=== PATIENT | female | born 1925 | race Caucasian/White ===

== ENCOUNTER 2017-06-13 06:21 | Inpatient (IN) | payer MEDICARE ==
[~2017-06-13] VITALS: Ht 157.5 cm; Wt 71.7 kg
[2017-06-13] MEDS ORDERED: FUROSEMIDE 40 MG/4 ML VIAL IV ONE (06:30)
[2017-06-13] MEDS ORDERED: ASPIRIN 325 MG TABLET PO ONE (06:30)
[2017-06-13] MEDS ORDERED: NTG 50 MG/D5W250 ML BOTTL 250 ML IV ONE ×2 (06:30→06:31)
--- NOTE | 2017-06-13 06:33 | NUR ---
PT BIBA FOR INCREASING SOB X4 DAYS. PRESENTS WITH SHALLOW BREATHING. PT PLACED IN BED, PLACED ON O2 VIA NC AT 3 LPM, O2 SAT AT 98%. IV STATED AT RIGHT WRIST 20G. PLACED ON MONITOR.
[2017-06-13] MEDS ORDERED: FUROSEMIDE 40 MG/4 ML VIAL ONE (06:47)
[2017-06-13] MEDS ORDERED: ASPIRIN 325 MG TABLET ONE (06:47)
--- NOTE | 2017-06-13 06:47 | NUR ---
ON-CALL CARDIOLOGY PAGED; TRANSFERED TO DR. ADAMS
--- NOTE | 2017-06-13 06:57 | NUR ---
CALLED CODE STEMI
--- NOTE | 2017-06-13 06:59 | NUR ---
CALLED [facility]; SPOKE WITH PRINCIPAL AUTOMATION ENGINEER ELIN. STATED SHE WOULD CONTACT THE CCT NURSE AND TRANSFER THE CALL, BUT CALL WENT TO VOICEMAIL AND WAS UNABLE TO LEAVE MESSAGE.
--- NOTE | 2017-06-13 07:01 | NUR ---
CALLED [facility], SPOKE WITH HANNA CRUZ FAX [phone] FACE SHEET AND EKG
[2017-06-13 07:10] LABS: CALCIUM, SERUM 9.5 mg/dL (8.5-10.1); CARBON DIOXIDE 21 mmol/L (21-32); CHLORIDE 96 mmol/L (98-107); CREATININE 0.7 mg/dL (0.6-1.3); GLUCOSE 156 mg/dL (74-106); POTASSIUM 3.9 mmol/L (3.5-5.1); SODIUM SERUM 127 mmol/L (136-145); UREA NITROGEN, BLOOD 17 mg/dL (7-18)
[2017-06-13 07:21] LABS: TROPONIN I 2.156 ng/mL (0.00-0.056)
[2017-06-13 07:23] LABS: ALANINE AMINOTRANSFERASE 67 U/L (12-78); ALBUMIN 2.5 g/dL (3.4-5.0); ALKALINE PHOSPHATASE 147 U/L (46-116); ASPARTATE AMINOTRANSFERASE 30 U/L (15-37); B-TYPE NATRIURETIC PEPTIDE 10807 PG/ML (0-125); BILIRUBIN,DIRECT 0.1 mg/dL (0.0-0.2); BILIRUBIN,TOTAL 0.8 mg/dL (0.2-1.0); TOTAL PROTEIN, SERUM 6.8 g/dL (6.4-8.2)
[2017-06-13 07:24] LABS: INR 1.1 (0.87-1.13); PROTHROMBIN TIME 11.4 SECS (9.5-12.7)
--- NOTE | 2017-06-13 07:26 | NUR ---
CALLED [facility] [phone] [facility] TO RE-PAGE CARDIO
[2017-06-13 07:33] LABS: BASOPHILS % (AUTO) 0.3 % (0.0-2.0); EOSINOPHILS % (AUTO) 0.5 % (0.0-6.0); HEMATOCRIT 37 % (33-45); HEMOGLOBIN 12.4 g/dL (11.5-14.8); LYMPHOCYTES # (AUTO) 0.9 /CMM (0.8-4.8); LYMPHOCYTES % (AUTO) 9.3 % (20.0-44.0); MEAN CORPUSCULAR HEMOGLOBIN 30 PG (26.0-33.0); MEAN CORPUSCULAR HGB CONC 33 g/dl (31.0-36.0); MEAN CORPUSCULAR VOLUME 91 fL (82-100); MONOCYTES % (AUTO) 10.3 % (2.0-12.0); NEUTROPHILS # (AUTO) 7.5 /CMM (1.8-8.9); NEUTROPHILS % (AUTO) 79.6 % (43.0-81.0); PLATELET COUNT (AUTO) 381 /CMM (150-450); RDW COEFFICIENT OF VARIATION 12.3 (11.5-15.0); RED BLOOD CELL COUNT(AUTO) 4.08 MIL/uL (4.0-5.2); WHITE BLOOD COUNT (AUTO) 9.4 K/uL (4.3-11.0)
[2017-06-13] MEDS ORDERED: ENOXAPARIN SODIUM 80 MG/0.8 ML DISP.SYRIN SQ ONE (07:40)
--- NOTE | 2017-06-13 07:41 | NUR ---
PAGED [facility]--- ACTING MANAGER IS DR WOODS.
[2017-06-13] MEDS ORDERED: ENOXAPARIN SODIUM 60 MG/0.6 ML DISP.SYRIN SQ ONE (08:00)
--- NOTE | 2017-06-13 08:26 | NUR ---
GAVE REPORT TO EBENEZER FARIA [address] WOODS ADMITTING TRANSFER VIA ACLS PROTOCOL
--- NOTE | 2017-06-13 08:48 | NUR ---
BIENVENIDO RN OPENING RECEIVED PATIENT A/OX4 DENIES SOB AT THIS TIME, NO PAIN, RESPIRATIONS EQUAL AND UNLABORED. PATIENT 2LPM NC SATTING 97%. PATIENT TELE NSR 94 AT THIS TIME. PATIENT SKIN INTACT. DAUGHTER AND SON IN LAW AT BEDSIDE. PATIENT CONFIRMS NO MEDICAL HX AND REFUSING FLU/PNA VACCINES. PATIENT APPEARS STABLE AT THIS TIME. ALL NEEDS IN REACH, BED LOWERED AND LOCKED, RAILS UPX3 FOR SAFETY AND BED ALARM ON. WILL ROUND Q1H OR LESS PER NEEDS. WHILE LAYING FLAT PATIENT STATES SHE DOES EXPERIENCE INCREASED EFFORT IN BREATHING. 2LPM ON FOR COMFORT.
[2017-06-13 08:50] VITALS: BP 105/67
[2017-06-13] MEDS ORDERED: MAGNESIUM HYDROXIDE 30 ML UDC PO PRN (09:00)
[2017-06-13] MEDS: NITROGLYCERIN PACKET 1 GM PACKET TOP SCH ×3 (09:00→21:00)
[2017-06-13] MEDS ORDERED: ENOXAPARIN SODIUM 80 MG/0.8 ML DISP.SYRIN SQ SCH (09:00)
[2017-06-13] MEDS ORDERED: ONDANSETRON HCL/PF 4 MG/2 ML VIAL IVP PRN (09:00)
[2017-06-13] MEDS ORDERED: HYDROCODONE/APAP 5/325MG 1 EACH TABLET PO PRN (09:00)
[2017-06-13] MEDS: METOPROLOL TARTRATE 25 MG TABLET PO SCH ×2 (09:00→21:00)
[2017-06-13] MEDS ORDERED: MAG HYDROX/AL HYDROX/SIMETH 30 ML UDC PO PRN (09:00)
[2017-06-13] MEDS ORDERED: MORPHINE SULFATE INJ 2 MG/ML DISP.SYRIN IV PRN (09:00)
[2017-06-13] MEDS ORDERED: Z GUARD REMEDY 2 OZ OINT TP PRN (09:00)
[2017-06-13] MEDS ORDERED: ACETAMINOPHEN 325 MG TABLET PO PRN (09:00)
[2017-06-13] MEDS ORDERED: ASPIRIN 325 MG TABLET PO SCH (09:00)
[2017-06-13] MEDS ORDERED: ZOLPIDEM TARTRATE 5 MG TABLET PO PRN (09:00)
--- NOTE | 2017-06-13 09:40 | NUR ---
td rn notes dr ratliff at bedside
[2017-06-13 09:43] LABS: APPEARANCE,URINE Clear (CLEAR); BILIRUBIN,URINE Negative (NEGATIVE); BLOOD, URINE Negative Ery/uL (NEGATIVE); COLOR,URINE Light yellow (YELLOW); KETONES,URINE Negative (NEGATIVE); LEUKOCYTE ESTERASE ,URINE Negative (NEGATIVE); NITRITE, URINE Negative (NEGATIVE); PROTEIN,URINE Negative (NEGATIVE); UGLUCOSE Negative (NEGATIVE); UROBILINOGEN,URINE 0.2 EU/dL (0.2)
--- NOTE | 2017-06-13 09:49 | NUR ---
TD RN NOTES DR DIANE AT BEDSIDE. PER MD GIVE LASIX DOSE NOW.
[2017-06-13] MEDS: FUROSEMIDE 40 MG/4 ML VIAL IV SCH ×2 (09:58→20:51)
[2017-06-13] MEDS: ATORVASTATIN 40 MG TABLET PO SCH ×2 (10:00→11:44)
--- NOTE | 2017-06-13 10:00 | NUR ---
td rn notes dr dickens at bedside
[2017-06-13 10:37] LABS: THYROID STIMULATING HORMONE 4.128 uIU/mL (0.358-3.74)
[2017-06-13 12:00] VITALS: BP 114/68
--- NOTE | 2017-06-13 12:07 | NUR ---
OPTICAL LENS MANUFACTURING TECH NOTES PATIENT REFUSING LIPITOR. DENIES CHEST PAIN HOLDING NITRO AT THIS TIME ORDER IS TO GIVE FOR CHEST PAIN
--- NOTE | 2017-06-13 15:45 | NUR ---
INTELLECTUAL PROPERTY MANAGER NOTES DR DIANE AT BEDSIDE. MESSAGE TO DR RAMOS FOR CLARIFICATION FOR CT ANGIO ORDER PER RADIOLOGY.
[2017-06-13 16:00] VITALS: BP 110/54
--- NOTE | 2017-06-13 16:06 | NUR ---
CLINICAL SAFETY SPECIALIST NOTES PER DR RAMOS CANCEL CT ANGIO AND ORDER CT CHEST WITH AND WITHOUT
--- NOTE | 2017-06-13 18:09 | NUR ---
TUTORIAL LABORATORY SUPERVISOR CLOSING PATIENT STABLE NO COMPLICATIONS NOTED. ALL DUE MEDS GIVEN AND ALL NEEDS MET. DAUGHTER AT BEDSIDE. TELE NSR AT THIS TIME. ALL NEEDS IN REACH. PATIENT RESTING COMFORTABLY AT THIS TIME. PATIENT APPEARS STABLE. ROOM AIR 94%. PATIENT STATES IT IS A LITTLE EASIER TO LAY FLAT WHILE SHE REPOSITIONS SELF IN BED. CARE WILL BE ENDORSED TO RN FOR [place].
--- NOTE | 2017-06-13 19:30 | NUR ---
RN NOTES RECEIVED PATIENT IN BED AWAKE, AO X 3, ABLE TO MAKE NEEDS KNOWN. NO ACUTE DISTRESS NOTED. DENIES ANY PAIN AT THIS TIME. TELE READING SINUS TACH HR 103. IV SITE PATENT, INTACT; FLUSHED. SAFETY REMINDERS GIVEN. FAMILY AT BEDSIDE. ON LOW BED WITH BILATERAL UPPER SIDE RAILS UP. CALL LIGHT WITHIN EASY REACH. WILL CONTINUE TO MONITOR.
[2017-06-13 20:00] VITALS: BP 114/61
[2017-06-13] MEDS: ENOXAPARIN SODIUM 80 MG/0.8 ML DISP.SYRIN SQ SCH (20:53)
--- NOTE | 2017-06-13 21:04 | NUR ---
RN NOTES PATIENT DENIES ANY CHEST PAIN; REFUSED NITRO PASTE; NOT ADMINISTERED. EDUCATION GIVEN ON INDICATION FOR LOPRESSOR; VERBALIZED UNDERSTANDING.
--- NOTE | 2017-06-13 22:00 | NUR ---
RN NOTES PER PATIENT, SHE DOES NOT WANT 0000 AND 0400 VITALS TO TAKEN; SHE WANTS TO SLEEP ALL THROUGH THE NIGHT. WILL CONTINUE TO MONITOR PATIENT.
[2017-06-14] MEDS: NITROGLYCERIN PACKET 1 GM PACKET TOP SCH ×3 (05:00→21:00)
--- NOTE | 2017-06-14 05:19 | NUR ---
RN NOTES PATIENT REFUSED NITRO PASTE; DENIES CHEST PAIN. PATIENT REFUSED BLOOD PRESSURE CHECK. PATIENT REFUSED BLOOD DRAW; WANTS QUALITY CONTROL CLERK TO COME BACK IN 2 HOURS. EDUCATION GIVEN. PATIENT'S RIGHTS RESPECTED.
--- NOTE | 2017-06-14 06:16 | NUR ---
RN NOTES PATIENT ASLEEP, EASILY AROUSABLE. RESPIRATIONS EVEN. NO SIGNS OF PAIN NOTED. DUE MEDS GIVEN WITH NO ASE NOTED. NEEDS ATTENDED. SAFETY PRECAUTIONS AND COMFORT MEASURES IN PLACE. WILL GIVE REPORT TO DAY SHIFT FOR CONTINUITY OF CARE.
--- NOTE | 2017-06-14 07:10 | NUR ---
RN NOTES RECEIVED PATIENT ON BED, A/Ox3, RESPIRATION EVEN AND UNLABORED , NO DISTRESS NOTED , DENIES ANY PAIN AT THIS TIME. ON TELE ST HR IN 100'S, R HAND IV SITE CDI, SUPPORTIVE FAMILY AT BEDSIDE. PT IS NPO THIS AM FOR CT CHEST WITH CONTRAST, BED LOCKED AND IN LOWEST POSITION , SR UP x3, CALL LIGHT WITHIN EASY REACH. WILL CONTINUE TO MONITOR PT CLSOELY .
[2017-06-14 08:00] VITALS: BP 121/63
[2017-06-14 08:20] LABS: BASOPHILS # (AUTO) 0.4 /CMM (0.0-0.2); BASOPHILS % (AUTO) 4.7 % (0.0-2.0); EOSINOPHILS # (AUTO) 0.1 /CMM (0.0-0.7); EOSINOPHILS % (AUTO) 0.6 % (0.0-6.0); HEMATOCRIT 39 % (33-45); HEMOGLOBIN 12.7 g/dL (11.5-14.8); LYMPHOCYTES # (AUTO) 0.9 /CMM (0.8-4.8); LYMPHOCYTES % (AUTO) 10.1 % (20.0-44.0); MEAN CORPUSCULAR HEMOGLOBIN 30 PG (26.0-33.0); MEAN CORPUSCULAR HGB CONC 33 g/dl (31.0-36.0); MEAN CORPUSCULAR VOLUME 92 fL (82-100); MONOCYTES % (AUTO) 10.8 % (2.0-12.0); NEUTROPHILS # (AUTO) 6.9 /CMM (1.8-8.9); NEUTROPHILS % (AUTO) 73.8 % (43.0-81.0); PLATELET COUNT (AUTO) 368 /CMM (150-450); WHITE BLOOD COUNT (AUTO) 9.3 K/uL (4.3-11.0)
[2017-06-14 08:46] LABS: CHOLESTEROL 166 mg/dL (<200); HDL CHOLESTEROL 69 mg/dL (40-60); LDL 87 mg/dL (0-99); TRIGLYCERIDES 64 mg/dL (30-150)
[2017-06-14 08:47] LABS: ALANINE AMINOTRANSFERASE 49 U/L (12-78); ALBUMIN 2.2 g/dL (3.4-5.0); ALKALINE PHOSPHATASE 125 U/L (46-116); ASPARTATE AMINOTRANSFERASE 22 U/L (15-37); BILIRUBIN,TOTAL 0.8 mg/dL (0.2-1.0); CALCIUM, SERUM 9.2 mg/dL (8.5-10.1); CARBON DIOXIDE 30 mmol/L (21-32); CHLORIDE 98 mmol/L (98-107); CREATININE 0.8 mg/dL (0.6-1.3); GLUCOSE 104 mg/dL (74-106); PHOSPHORUS 2.7 mg/dL (2.5-4.9); POTASSIUM 2.9 mmol/L (3.5-5.1); SODIUM SERUM 134 mmol/L (136-145); TOTAL PROTEIN, SERUM 6.4 g/dL (6.4-8.2); UREA NITROGEN, BLOOD 19 mg/dL (7-18)
[2017-06-14] MEDS: ENOXAPARIN SODIUM 80 MG/0.8 ML DISP.SYRIN SQ SCH ×2 (08:57→21:16)
[2017-06-14] MEDS: FUROSEMIDE 40 MG/4 ML VIAL IV SCH ×6 (08:57→21:15)
[2017-06-14 09:14] LABS: TROPONIN I 2.265 ng/mL (0.00-0.056)
[2017-06-14] MEDS ORDERED: CT SWABBABLE VALVE TRANS SET 1 EA INFUS.SET MC ONE (09:23)
[2017-06-14] MEDS ORDERED: IV NS 0.9% 0 ML IV ONE (09:23)
[2017-06-14] MEDS ORDERED: IOHEXOL-300 100 ML VIAL IV ONE (09:23)
--- NOTE | 2017-06-14 09:30 | NUR ---
RN NOTES PT REFUSED TO HAVE CT CHEST DONE THIS AM , WANTS TO TALK TO DR DIANE FIRST . DR DIANE PAGED AND NOTIFIED.
--- NOTE | 2017-06-14 09:35 | NUR ---
ON HOLD PER RN. PT. MAY HAVE ANGIO DONE TOMORROW INSTEAD. DR. DIANE WILL CLARIFY ORDER WITH FAMILY. RN WILL CALL BACK TO VERIFY.
--- NOTE | 2017-06-14 09:50 | NUR ---
RN NOTES PT'S DAUGHTER REFUSED MORNING MEDS AT THIS TIME . DR DIANE NOTIFIED.
[2017-06-14] MEDS: ASPIRIN 325 MG TABLET PO SCH (10:53)
[2017-06-14] MEDS: PANTOPRAZOLE 40 MG TABLET.DR PO SCH (10:53)
[2017-06-14] MEDS: ATORVASTATIN 40 MG TABLET PO SCH (10:53)
[2017-06-14] MEDS: CARVEDILOL 6.25 MG TABLET PO SCH ×2 (11:00→21:00)
[2017-06-14] MEDS ORDERED: FUROSEMIDE 40 MG/4 ML VIAL IV SCH (11:00)
[2017-06-14] MEDS: POTASSIUM CHLORIDE 20 MEQ TAB.PRT.SR PO SCH ×5 (11:13→16:02)
[2017-06-14 12:00] VITALS: BP_SYST 91; BP_DIAS 32; BP_DIAS 45
--- NOTE | 2017-06-14 12:50 | NUR ---
RN NOTES PT SITTING UP ON A CHAIR , BP =88/43 HR 86, PT DEVI ANY DISTRESS. PT PLACED BACK IN THE BED .
--- NOTE | 2017-06-14 13:00 | NUR ---
RN NOTES PT'S DAUGHTER REFUSED TO HAVE BLOOD PRESSURE RECHECKED , STATED MOM NEED REST AND SLEEP .NO DISTRESS NOTED, CONTINUE TO MONITOR .
--- NOTE | 2017-06-14 13:00 | NUR ---
RN NOTES PT DAUGHTER REFUSED 1300 LASIX, EXPLAINED TO PT AND HER DAUGHTER HOW IMPORTANT IS TO FOLLOW THE PLAN OF CARE , PT 'S DAUGHTER STILL REFUSED
[2017-06-14 16:00] VITALS: BP 107/59
[2017-06-14 20:00] VITALS: BP 117/72
--- NOTE | 2017-06-14 21:31 | NUR ---
TELE-1/STIFF LEG OPERATOR PT IV LEAKING PT AND PT FAMILY IS REQUESTING THAT NEW IV NOT BE PLACED UNTIL PRIOR TO PROCEDURE CARDIAC CATH AT [facility] TOMORROW. SPOKE WITH DR. CLIFTON MARTÍNEZ FOR NO IV AT THIS TIME. CHANGE LAST DOSE OF LASIX TO 40MG POx1 NOW. WILL CONTINUE TO MONITOR.
[2017-06-14] MEDS ORDERED: FUROSEMIDE 40 MG TABLET ONE (21:35)
[2017-06-14] MEDS ORDERED: FUROSEMIDE 40 MG TABLET PO ONE (22:00)
--- NOTE | 2017-06-15 00:03 | NUR ---
TELE-1/ORDER PICKER/ASSEMBLER PT DECLINING MIDNIGHT VITALS. SAFETY CHECK DONE.
--- NOTE | 2017-06-15 00:50 | NUR ---
TELE-1/TALENT PROGRAM MANAGER PT HEART RATE JUMPED TO 130-140 BPM AFTER AMBULATING TO THE RESTROOM. THIS RATE SUSTAINED FOR 40MINS. @0130 I ORDERED A STAT EKG THAT CONFIRMED AFIB WITH RVR. DR. ROSE WAS PAGED. I WAS GIVEN TWO OPTION TO PRESENT TO THE PT AND PTS DAUGHTER, WHO IS INVOLVED HEAVILY IN THE PTS PLAN OF CARE AND MEDICAL DECISION MAKING. FIRST CHOICE WAS AMIODARONE DRIP PER HOSPITAL PROTOCOL AND THE SECOND WAS TO ADMINISTER COREG 6.25MG PO NOW AND MONITOR EFFECTIVENESS. I SPOKE WITH THE DAUGHTER AT LENGTH ABOUT THE TWO OPTIONS AND THAT HOW THE IVGTT AMIODARONE WOULD BE THE MORE SUITABLE COURSE GIVEN HER MOTHERS ACUTE ONSET. THE PTS DAUGHTER SHAY WAS HESITANT TO GO THIS ROUTE AND STATES THAT "HER MOTHER IS MORE SENSITIVE TO ANY MEDICATION THAN MOST PEOPLE". THE PT AND PTS DAUGHTER SHAY WERE BOTH AGREEABLE TO THE SECOND OPTION OF PO COREG. THE MEDICATION WAS ADMINISTERED AND I WILL CONTINUE TO MONITOR THE PT CLOSELY.
[2017-06-15] MEDS ORDERED: CARVEDILOL 6.25 MG TABLET PO ONE (02:30)
[2017-06-15 04:00] VITALS: BP_SYST 121; BP_SYST 89; BP_DIAS 56; BP_DIAS 63
--- NOTE | 2017-06-15 04:24 | NUR ---
TELE-1/COUNTER STITCHER PT CONVERTED TO NSR IN THE 80s. WILL CONTINUE TO MONITOR.
[2017-06-15] MEDS: NITROGLYCERIN PACKET 1 GM PACKET TOP SCH ×2 (04:26→13:00)
[2017-06-15 06:12] LABS: *SPE A/G RATIO 0.8 (0.7-1.7); *SPE ALBUMIN 2.6 g/dL (2.9-4.4); *SPE ALPHA-1-GLOBULIN 0.4 g/dL (0.0-0.4); *SPE GLOBULIN, TOTAL 3.3 g/dL (2.2-3.9); *SPE M-SPIKE Not Observed g/dL (Not Observed); *SPEGAMMA GLOBULIN 0.9 g/dL (0.4-1.8)
--- NOTE | 2017-06-15 07:15 | NUR ---
RN INITIAL NOTES: REC'D PT AWAKE ON BED, NOT IN ANY DISTRESS, A/O X3, DENIES ANY CHEST PAIN/DISCOMFORT AT THIS TIME. ON O2 AT 2LPM/NC, NO SOB. ON TELEMONITOR, SR W/ BBB HR AT 81 BPM. DTR AT BEDSIDE. EXPLAINED DUE MEDICATIONS TODAY AND THE IMPORTANCE OF TAKING IT. PT KEPT NPO EXCEPT MEDS. FOR IV INSERTION, PT AND DTR AGREED TO INSERT ONE. PROVIDED COMFORT & SAFETY MEASURES. BED KEPT LOW IN LOCKED POS. CALL LIGHT PLACED W/IN REACH. WILL CONTINUE TO MONITOR.
[2017-06-15 08:00] VITALS: BP 102/55
--- NOTE | 2017-06-15 08:00 | NUR ---
RN NOTES: CALLED [facility] AT [phone], SPOKE W/ KEITH RN AND GAVE REPORT. PT IS SCHEDULED FOR CARDIAC CATHETERIZATION AT 1:30PM, SCOUT PROFESSIONAL SPORTS TIME 10:30AM. DTR SHAY SIGNED CONSENT FOR PT'S TRANSFER.
[2017-06-15 08:05] LABS: ALANINE AMINOTRANSFERASE 47 U/L (12-78); ALBUMIN 1.9 g/dL (3.4-5.0); ALKALINE PHOSPHATASE 107 U/L (46-116); ASPARTATE AMINOTRANSFERASE 26 U/L (15-37); BILIRUBIN,TOTAL 0.5 mg/dL (0.2-1.0); CALCIUM, SERUM 9.2 mg/dL (8.5-10.1); CARBON DIOXIDE 29 mmol/L (21-32); CHLORIDE 99 mmol/L (98-107); CREATININE 0.9 mg/dL (0.6-1.3); GLUCOSE 125 mg/dL (74-106); PHOSPHORUS 2.8 mg/dL (2.5-4.9); POTASSIUM 3.7 mmol/L (3.5-5.1); SODIUM SERUM 136 mmol/L (136-145); UREA NITROGEN, BLOOD 20 mg/dL (7-18)
[2017-06-15 08:07] LABS: BASOPHILS % (AUTO) 0.3 % (0.0-2.0); EOSINOPHILS # (AUTO) 0.1 /CMM (0.0-0.7); EOSINOPHILS % (AUTO) 1.2 % (0.0-6.0); HEMATOCRIT 36 % (33-45); HEMOGLOBIN 11.9 g/dL (11.5-14.8); LYMPHOCYTES # (AUTO) 0.6 /CMM (0.8-4.8); LYMPHOCYTES % (AUTO) 7.7 % (20.0-44.0); MEAN CORPUSCULAR HEMOGLOBIN 31 PG (26.0-33.0); MEAN CORPUSCULAR HGB CONC 33 g/dl (31.0-36.0); MEAN CORPUSCULAR VOLUME 92 fL (82-100); MONOCYTES # (AUTO) 0.8 /CMM (0.1-1.30); MONOCYTES % (AUTO) 9.8 % (2.0-12.0); NEUTROPHILS # (AUTO) 6.7 /CMM (1.8-8.9); PLATELET COUNT (AUTO) 318 /CMM (150-450); RDW COEFFICIENT OF VARIATION 13.1 (11.5-15.0); RED BLOOD CELL COUNT(AUTO) 3.92 MIL/uL (4.0-5.2); WHITE BLOOD COUNT (AUTO) 8.3 K/uL (4.3-11.0)
[2017-06-15 08:11] LABS: TROPONIN I 1.497 ng/mL (0.00-0.056)
[2017-06-15] MEDS ORDERED: ENOXAPARIN SODIUM 80 MG/0.8 ML DISP.SYRIN SQ SCH (08:48)
[2017-06-15] MEDS: FUROSEMIDE 40 MG/4 ML VIAL IV SCH (08:52)
[2017-06-15] MEDS: ATORVASTATIN 40 MG TABLET PO SCH (08:53)
[2017-06-15] MEDS: ASPIRIN 325 MG TABLET PO SCH (08:53)
[2017-06-15] MEDS: PANTOPRAZOLE 40 MG TABLET.DR PO SCH (08:54)
[2017-06-15 08:56] VITALS: BP 96/66
[2017-06-15] MEDS: CARVEDILOL 6.25 MG TABLET PO SCH (08:56)
--- NOTE | 2017-06-15 10:00 | NUR ---
RN NOTES: PT SEEN & EXAMINED BY [facility]. PER ROBOTICS ENGINEER CHRISTA WILKERSON. PT AND DTR MADE AWARE.
--- NOTE | 2017-06-15 11:00 | NUR ---
RN NOTES: PT LEFT FACILITY IN GUARDED CONDITION VIA GURNEY VIA ACLS PROTOCOL. PICKED UP BY [facility], ACCOMPANIED BY MANGLE ROLL OPERATOR AND PT'S DTR SHAY. NO CONCERN IDENTIFIED/ EXPRESSED AT THIS TIME. IV LINE KEPT PATENT & INTACT. ALL TRANSFER DOCUMENTS GIVEN AND ENDORSED TO MANGLE ROLL OPERATOR.
--- NOTE | 2017-06-15 17:26 | NUR ---
CASH CROP FARMER NOTES: PER NURSE GRIT BLASTER, PT NOT COMING BACK IN THE HOSPITAL. PT DC'D TO [facility].
== END 2017-06-15 18:38 | DRG 189 ==
LOC: ER 06:24 → TELE-TD 08:13 → TELE1 10:40
PROVIDERS: ADMIT Internal Medicine; ATTEND Internal Medicine
PROC: 05H633Z Insertion of Infusion Device into Left Subclavian Vein, Percutaneous Approach (ICD-10-PCS; principal; 2017-06-15)
PROC: B547ZZA Ultrasonography of Left Subclavian Vein, Guidance (ICD-10-PCS; 2017-06-15)
DX: J96.01 Acute respiratory failure with hypoxia (principal); I21.09 ST elevation (STEMI) myocardial infarction involving other coronary artery of anterior wall; I50.23 Acute on chronic systolic (congestive) heart failure; E87.1 Hypo-osmolality and hyponatremia; I11.0 Hypertensive heart disease with heart failure; E66.9 Obesity, unspecified; E87.6 Hypokalemia; I50.82 Biventricular heart failure; Z87.891 Personal history of nicotine dependence; Z68.28 Body mass index [BMI] 28.0-28.9, adult; I25.2 Old myocardial infarction
CPT/HCPCS: 36415; 71010-TC; 80048-TC; 80053-TC; 80061-TC; 80076-TC; 81000-TC; 82306; 82728-TC; 83540-TC; 83735-TC; 83880; 84100-TC; 84155; 84165; 84439-TC; 84443-TC; 84484-TC; 85025-TC; 85730-TC; 87081-TC; 93307-TC; A4606; J1650; J1940; J3490; J7050; Q9967; Z7610

== ENCOUNTER 2017-07-06 12:07 | Outpatient (CLI) | payer MEDICARE ==
[2017-07-06 13:34] LABS: CALCIUM, SERUM 9.5 mg/dL (8.5-10.1); CARBON DIOXIDE 32 mmol/L (21-32); CHLORIDE 98 mmol/L (98-107); CREATININE 1.1 mg/dL (0.6-1.3); GLUCOSE 121 mg/dL (74-106); POTASSIUM 3.2 mmol/L (3.5-5.1); SODIUM SERUM 137 mmol/L (136-145); UREA NITROGEN, BLOOD 22 mg/dL (7-18)
== END 2017-07-06 23:59 | disposition home or self-care (01) ==
LOC: LAB 12:07
PROVIDERS: ATTEND Internal Medicine Interventional Cardiology
DX: I10 Essential (primary) hypertension (principal); R53.81 Other malaise
CPT/HCPCS: 36415; 80048-TC